=== PATIENT | male | born 1995 ===

== ENCOUNTER 2017-04-26 16:01 | Emergency (ER) | payer OTHER ==
[2017-04-26 16:03] VITALS: BMI 22.1
[2017-04-26 16:07] VITALS: BP 119/83; PULSE 99; RESP 18; TEMP 98.4; O2SAT 98
[2017-04-26] MEDS ORDERED: Sodium Chloride 0.9% 1,000 ML IV STA (16:32)
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
--- NOTE | 2017-04-27 17:43 | CARD ---
APPROVED REPORT EKG Measurement Heart [id number] <Conclusion> Normal sinus rhythm Normal ECG
== END 2017-04-26 18:21 | disposition home or self-care (01) ==
LOC: ED 16:01
DX: E86.0 Dehydration (principal); R55 Syncope and collapse
CPT/HCPCS: 93005; 96360; 99285; J7040